=== PATIENT | male | born 1950 | race Caucasian/White ===

== ENCOUNTER 2018-01-16 18:19 | Emergency (ER) | payer MEDICARE ==
[~2018-01-16] VITALS: Ht 165.1 cm; Wt 60.0 kg
[2018-01-16 18:35] VITALS: BP 171/117
== END 2018-01-16 22:21 | disposition left against medical advice (07) ==
LOC: ER 18:19
DX: R51 Headache (principal); W18.12XA Fall from or off toilet with subsequent striking against object, initial encounter; Y93.89 Activity, other specified; Y92.012 Bathroom of single-family (private) house as the place of occurrence of the external cause
CPT/HCPCS: 99281

== ENCOUNTER 2018-01-17 12:10 | Emergency (ER) | payer MEDICARE ==
[~2018-01-17] VITALS: Ht 162.6 cm; Wt 53.0 kg
[2018-01-17] MEDS ORDERED: IBUPROFEN 600MG TABLET PO ONE (14:30)
[2018-01-17 15:45] LABS: CHLORIDE 99 mEq/L (98-107)
[2018-01-17 15:46] LABS: BASOPHILS % 0.4 % (0.0-2.0); EOSINOPHILS % 1.3 % (0.0-5.0); HEMATOCRIT. 34.1 % (42.0-52.0); HEMOGLOBIN. 10.9 g/dL (14.0-18.0); LYMPHOCYTES % 19.1 % (20.0-50.0); MEAN CORPUSCULAR HEMOGLOBIN 22.4 pg (28.0-32.0); MEAN PLATELET VOLUME 7.2 fl (7.4-10.4); MONOCYTES % 5.9 % (2.0-8.0); NEUTROPHILS % 73.3 % (40.0-76.0); PLATELET 167 x1000/uL (130-400); RED BLOOD CELL COUNT 4.87 mill/uL (4.7-6.1); RED CELL DISTRIBUTION WIDTH 15.4 % (11.6-14.6)
[2018-01-17 16:19] LABS: PLATELET ESTIMATE NORMAL
[2018-01-17 17:17] VITALS: BP 127/69
== END 2018-01-17 18:05 | disposition left against medical advice (07) ==
LOC: ER 13:13
DX: S00.83XA Contusion of other part of head, initial encounter (principal); S09.8XXA Other specified injuries of head, initial encounter; J44.9 Chronic obstructive pulmonary disease, unspecified; I11.0 Hypertensive heart disease with heart failure; Z88.0 Allergy status to penicillin; Z88.2 Allergy status to sulfonamides; W18.11XA Fall from or off toilet without subsequent striking against object, initial encounter; Y93.89 Activity, other specified; Y92.012 Bathroom of single-family (private) house as the place of occurrence of the external cause
CPT/HCPCS: 36415; 80048; 85025; 93005; 99285